=== PATIENT | male | born 1965 | race Caucasian/White ===

== ENCOUNTER → 2023-03-27 | Emergency (ER) | payer MEDICAID ==
[~2023-03-27] VITALS: Ht 177.8 cm; Wt 90.9 kg
[~2023-03-27] MED LIST: HYDR-4383 PO; MONT-48
[2023-03-27 21:27] VITALS: BP 194/95; PULSE 103; RESP 14; TEMP 98.2; O2SAT 98
== END ==
LOC: ER 23:50
DX: T18.2XXA Foreign body in stomach, initial encounter (principal); Z88.1 Allergy status to other antibiotic agents; W44.8XXA Other foreign body entering into or through a natural orifice, initial encounter; Y93.9 Activity, unspecified; Y92.89 Other specified places as the place of occurrence of the external cause; Y99.8 Other external cause status
CPT/HCPCS: 74018; 96372; 99283